=== PATIENT | male | born 1975 | race Caucasian/White ===

== ENCOUNTER 2021-11-05 02:14 | Emergency (ER) | payer MEDICAID ==
[~2021-11-05] VITALS: Ht 170.2 cm; Wt 101.4 kg
[2021-11-05] MEDS ORDERED: ENALAPRIL 2.5MG TABLET PO ONE (04:15)
[2021-11-05] MEDS ORDERED: IBUPROFEN 600MG TABLET PO ONE (04:15)
[2021-11-05] MEDS ORDERED: ENAL2.5T39 MT (04:37)
[2021-11-05 06:30] VITALS: BP 121/70
== END 2021-11-05 06:30 | disposition home or self-care (01) ==
LOC: ER 03:53
DX: I10 Essential (primary) hypertension (principal)
CPT/HCPCS: 93005; 99283

== ENCOUNTER 2024-01-01 19:07 | Emergency (ER) | payer MEDICAID, OTHER ==
[~2024-01-01] VITALS: Ht 167.6 cm; Wt 91.6 kg
[~2024-01-01 19:07] MED LIST: ENAL2.5T39 MT
[2024-01-01 19:23] VITALS: O2SAT 99
[2024-01-01] MEDS ORDERED: KETOROLAC 30MG/ML VIAL IM ONE (21:30)
[2024-01-01 22:19] LABS: BASOPHILS % 0.4 % (0.0-2.0); EOSINOPHILS % 2.2 % (0.0-5.0); HEMATOCRIT. 43.4 % (42.0-52.0); HEMOGLOBIN. 14.8 g/dL (14.0-18.0); MEAN CORPUSCULAR HEMOGLOBIN 31.1 pg (28.0-32.0); MEAN CORPUSCULAR HGB CONC 34.2 g/dL (31.0-37.0); MEAN CORPUSCULAR VOLUME 91.2 fL (80.0-94.0); MEAN PLATELET VOLUME 10.5 fl (7.4-10.4); MONOCYTES % 7.4 % (2.0-8.0); PLATELET 176 x1000/uL (130-400); RED BLOOD CELL COUNT 4.77 mill/uL (4.7-6.1); RED CELL DISTRIBUTION WIDTH 13.7 % (11.6-14.6); WHITE BLOOD COUNT 10.4 x1000/uL (4.5-11.0)
[2024-01-01 22:37] LABS: ALANINE AMINOTRANSFERASE 24 IU/L (10-49); ALBUMIN 4.7 g/dL (3.2-4.8); ASPARTATE AMINOTRANSFERASE 16 IU/L (<34); BILIRUBIN TOTAL 0.7 mg/dL (0.1-1.0); CALCIUM 9.4 mg/dL (8.7-10.4); CARBON DIOXIDE 28 mEq/L (21-32); CHLORIDE 103 mEq/L (98-107); CREATININE 0.7 mg/dL (0.6-1.3); GLUCOSE 94 mg/dL (70-105); POTASSIUM 3.6 mEq/L (3.5-5.1); PROTEIN TOTAL 7.5 g/dL (6.0-8.3); SODIUM 139 mEq/L (136-145); TROPONIN I HIGH SENSITIVITY 6 ng/L (3.0-53); UREA NITROGEN BLOOD 12 mg/dL (9-23)
[2024-01-02] MEDS ORDERED: IBUP-2029 MT (01:59)
[2024-01-02] MEDS ORDERED: ACET-2708 MT (01:59)
[2024-01-02 02:15] VITALS: TEMP 98.4
[2024-01-02 02:19] VITALS: BP 141/85; PULSE 74; RESP 16
[2024-01-02] MEDS: KETOROLAC 30MG/ML VIAL IM NR (02:19)
== END 2024-01-02 02:19 | disposition home or self-care (01) ==
LOC: ER 19:07
DX: R10.84 Generalized abdominal pain (principal); R30.0 Dysuria; I10 Essential (primary) hypertension
CPT/HCPCS: 99285; 74176; 80053; 83690; 85025; 84484; 36415; 93005; 96372; J1885